=== PATIENT | male | born 1975 | race Caucasian/White ===

== ENCOUNTER 2016-09-15 16:18 | Emergency (ER) | payer OTHER ==
[2016-09-15 16:27] VITALS: BP 130/82; PULSE 93; RESP 16; TEMP 98.2; O2SAT 99
--- NOTE | 2016-09-15 16:40 | EDPHY ---
H & P Smoking Status: Never smoked Time Seen by Provider: 09/15/16 16:27 HPI/ROS: CHIEF COMPLAINT: Bug bite right upper arm HISTORY OF PRESENT ILLNESS: 40-year-old male presents to the emergency department with a bug bite to his right upper arm. He noted a small red bump 2 days ago and then yesterday noted more redness and now streaking up towards his right axilla. He has minimal pain associated with this. He was feeling feverish and chilled. He did not take his temperature. No other rashes. No chest pain or difficulty breathing. No abdominal pain or vomiting. No headache. No recent travel. No known tick bite. He denies itching. REVIEW OF SYSTEMS: Constitutional: No fever, no chills. Eyes: No double or blurry vision. ENT: No sore throat. Respiratory: No cough, no shortness of breath. Cardiac: No chest pain. Gastrointestinal: No abdominal pain, vomiting or diarrhea. Genitourinary: No dysuria. Musculoskeletal: No neck or back pain. Skin: As above Neurological: No headache. (Thuy Lirina Nathalia) Past Medical/Surgical History: Negative (Kim Li M) Social History: (Kim Li) Physical Exam: General Appearance: Alert, no distress. Afebrile. Nontoxic appearing. Eyes: Pupils equal and round. Extraocular motions are all intact. ENT: Mouth: Mucous membranes moist. Respiratory: No wheezing, rhonchi, or rales, lungs are clear to auscultation. Cardiovascular: Regular rate and rhythm. Gastrointestinal: Abdomen is soft and nontender, no masses, no rebound or guarding, bowel sounds normal. Neurological: Alert and oriented x 3, cranial nerves II through XII grossly intact Skin: Erythematous lump noted to the lateral aspect of the right mid humerus. There is some mild scaling noted. It does adelso to the touch. No bull's eye appearing rash. He does have lymphangitis extending toward the right axilla. No palpable right axillary lymphadenopathy. Full range of motion of the right upper extremity. Musculoskeletal: Nontender to palpate along the cervical, thoracic or lumbar spine. Neck is supple. Extremities: Full range of motion and no peripheral edema. Psychiatric: Patient is oriented X 3, there is no agitation. (JenKim M) Constitutional: Initial Vital Signs Temperature (C) 36.8 C 09/15/16 16:24 Heart Rate 93 09/15/16 16:24 Respiratory Rate 16 09/15/16 16:24 Blood Pressure 130/82 H 09/15/16 16:24 O2 Sat (%) 99 09/15/16 16:24 O2 Delivery Mode Room Air Allergies/Adverse Reactions: No Known Allergies Allergy (Unverified 09/15/16 16:24) Home Medications: Medication Instructions Recorded Doxycycline Hyclate [Doxycycline] 100 mg PO BID #14 cap 09/15/16 Medical Decision Making ED Course/Re-evaluation: 40-year-old male presents to the emergency department with a bite of some kind to the lateral aspect of his right arm. He has not traveled outside of [place]. No known tick bites or lying prone areas of travel. The patient does have lymphangitis. I did explain to him that this could just be reactive although given that it has become worse last 24 hours, he will be treated with doxycycline. He was also given primary care referral. He was instructed to return if he developed fever, increasing pain or any other concerns. (Kim Li) I did not see this patient while he was in the emergency department. However his care was discussed with the PA while the patient was in the department. I agree with treatment plan and management (Glen Knight) Differential Diagnosis: Including but not limited to lymphangitis, cellulitis, lyme disease, allergic reaction (Kim Li) Departure - Departure Disposition: Home, Routine, Self-Care Clinical Impression: Lymphangitis Condition: Good Instructions: Lymphangitis (ED) Additional Instructions: Doxycycline 100mg twice daily for one week. Benadryl 50mg every 8 hours for itching/rash. Return if you develop fever, difficulty breathing, or if you feel worse in any way. Referrals: Bull Wiggins MD [Medical Doctor] - 2-3 days, if not improved (Primary care provider pulmonary specialist) Prescriptions: Doxycycline Hyclate [Doxycycline] 100 mg PO BID #14 cap
== END 2016-09-15 16:56 | disposition home or self-care (01) ==
DX: I89.1 Lymphangitis (principal); W57.XXXA Bitten or stung by nonvenomous insect and other nonvenomous arthropods, initial encounter